=== PATIENT | female | born 1970 | race Hispanic/Latino ===

== ENCOUNTER 2021-03-15 18:33 | Emergency (ER) | payer OTHER ==
--- OUTSIDE RECORDS SUMMARY | 2021-03-15 18:36 | XMS REPORT | Continuity of Care Document ---
:1970 Author Organization [facility] t Address [address] [place] [address] Care Team Providers Name Role Phone Baldemar Antonio Attending Clinician Unavailable KNOW Admitting Clinician Unavailable Payers Payer Name Policy Type Policy Number Effective Date Expiration Date S ource Problems This patient has no known problems. Allergies, Adverse Reactions, Alerts Allergy Allergy Status Severity Reaction(s) Onset Inactive Treating Comm ents Source Name Type Date Date Clinician No Known DA Active U 2019-04 [facility] [place] No Known DA Active U 2019-04 [facility] [place] Medications This patient has no known medications. Procedures This patient has no known procedures. Encounters Start End Encounter Admission Attending Care Care Encounter Source Date/Time Date/Time Type Type Clinicians Facility Department ID 2020-02-20 Inpatient ZEE Muir DAYS [id number] [facility] 14:30:00 [facility] [id number] [facility] 2020-02-18 Inpatient ZEE Muir OUTD [id number] [facility] 14:30:00 [facility] 2020-02-19 2020-02-19 Outpatient ZEE Muir [id number] [facility] 04:26:00 04:26:00 [facility] 2020-02-15 2020-02-15 Outpatient ZEE Mcdermott [id number] [facility] 14:30:00 14:30:[id number] [facility] deanneantonio [facility] Results Test Description Test Time Test Comments Results Result Comments Source ENDOCERVIX,BIOPSY 2020-02-22 08:23:00 Test Item Value Reference Range Interpretation Aranza hussein ENDOCERVIX,BIOPSY RUN (test code = DATE: 02/25/20 [facility] PAGE 1 RUN TIME: ENDOBX) 5375 Specimen Inquiry RUN USER: INTERFACE RYAN NT: DANO DAVISON LOC: [place] U #: [id number] AGE/SX: 49/F ROOM: RE02/19/20REG DR: Compa Mcdermott MD : 70 BED : DIS: STATUS: CHARLOTTE DAMON TLOC: SPEC #: [id number] RECD: 02/19/20-1223 STATUS: BRADY NIELSEN #: [id number] SERJIO: 02/19/20 - SUBM DR: Compa Mcdermott MD ENTERED: 02/19/20-1225 SP TYPE: EN DOBX OTHR DR: ORDERED: LEVEL IV/3 CODES: C15802 - UTERINE CERVIX [id number] - ENDOCERVIX [id number] - ENDOMETRIUM, NO PROCEDURES: LEVEL IV (Incomplete) TISSUES: ENDOCERVIX - ENDOCERVICAL CURETTINGS ENDOMETRIUM, NOS - ENDOMETRIAL CURETTINGS UTERINE CERVIX, NOS - CERVICAL CONE CLINICAL HISTORY 49 year old, cervical squamous intraepithelial neoplasia grade; abnormalty bleeding (kr) FINAL DIAGNOSIS Specimen #1 designated "predilation and curettage, endocervical curettings": - benign fragments of s quamous epithelium with hyperkeratosis - benign endocervical mucosa Specimen #2 end ometrium, curettage: - minute fragment of stromal tissue insufficient for diagnosis Specimen #3 cervix, LEEP: - chronic inflammation and reactive epithelial changes at transformation zone - no dysplasia identified CPT code(s): 48798 x2, 54868, 8 8342-26 cds/kr cds/wpd GROSS DESCRIPTION ANATOMIC SOURCE OF TISSUE (per Requis ition): 1. Predilation and curettage, endocervical curetting 2. Endometrial curettings 3 . LEEP (stitch at 12:00) Each specimen is labeled with the patient's name and medical r ecord number. CONTINUED ON NEXT PAGE RUN DATE: 02/25/20 [facility] PAGE 2 RUN TIME: 1834 Specimen Inquiry RUN USER: INTERFACE SPEC #: [id number] PATIENT: DANO DAVISON #[id number] (Continued) ------ GROSS DESCRIPT ION (Continued) Specimen #1 is designated "predilation and curettage, endocervical curettings" and consists of a 0.6 cm aggregate of uriostegui-pink soft tissue admixed with mucoid tissue. The specimen is placed in a filter bag and entirely submitted in A1. Specimen #2 is designated "endometrial curettings" and consists of a 0.1 x 0.1 x 0.1 cm ag gregate of uriostegui-pink soft tissues. The tissues are placed in a filter bag and submitted in toto in B1. The tissues may not survive processing. Specimen #3 is designated "LEEP, stitch at 12:00" and consists of a 1.5 x 1 x 0.4 cm annular portion of mucosa. The specimen has a stitch designating 12:00. The mucosa is uriostegui-pink to purple and dull. The endocervical michelle in is inked green. The ectocervical margin is inked black. The specimen is radially section ed and entirely submitted as follows: C1 - 12:00 to 3:00, C2 - 3:00 to 6:00, C3 - 6:00 to 9 :00, C4 - 9:00 to 12:00. monique/john 02/19/20 MICROSCOPIC DESCRIPTION Sections of t he cervical LEEP specimen show moderate to marked chronic inflammation at the transf ormation zone with reactive epithelial changes. There is no evidence of high grade dysplasia. autumn/kr The following technical components were performed at [facility], [address] [place] [address], [address], [place] [address]. The interpretation i s provided by [facility], [address], [place] [address]. Controls receiv ed from [employer] stained appropriately. INTERPRETATION: P16 (C2 and C4) - negative cds/wpd -- Signed Howard Scalesglory Lorenz 02/22/20 0823 END OF REP ORT COVID 19 Asymptomatic IH [id number] 18:30:00 Test Item Value Reference Range Interpretation Comments COVID 19 NEGATIVE NEGATIVE This test has b een Asymptomatic IH AG authorize d only for the (test code = detection ofpro teins from COVNONPUIAG) SARS-CoV-2, not for any other viruses orpathogens. N egative results should be treated as presumptive andconfirmed wi th a molecular assay , if necessary for patientmanageme nt. Negative result s do not rule out COVID- 19 andshould not b e used as the sole basis for treatment orpat ient management deci sions, including infec tion controldecision s. Negative result s should be considered i n thecontext of a patient's recent exposure s, history and thepresence of clinical signs and symptoms consis tent withCOVID-19. T his test has not been FD A cleared or approved; th e test hasbeen authori zed by FDA under an Emerge ncy Use Authorization(E UA) for use by alisaato duane certified under the CLIA thatmeet the re quirements to perform mode rate, high or waivedcomple xity tests. This ritu t is authorized for use at thePoint of Car e (POC), i.e., in patien t care settingsoperati ng under a CLIA Certificat e of Waiver, Certifi melvin ofCompliance, o r Certificate of Accreditation. This test is only authori zed for the duration of thedeclaration that circumstances e xist justifying theauthorizatio n of emergency use o f in vitro diagnostic test sfor detection and/o r diagnosis of CO VID-19 under Wgxxfal43 4(b)(1) of the Act, 21 U.S .C. 360bbb-3(b)(1), unless theauthorizatio n is terminated or r evoked sooner. UR HCG [id number] 17:32:00 Test Item Value Reference Range Interpretation Comments UR HCG QUAL (test NEGATIVE 1. Very di lute urine code = HCGQLU) specimens, as indicated by a lowspecific g ravity, may not contain rep resentative levels ofhCG. 2 . False negative result s may occur when the levels of hCGare below the sensi tivity level of the test. If is still suspec eliza, a first morningurine sp ecimen should be colle cted 48 hours later and tested. CBC W/AUTO [id number] 17:30:00 Test Item Value Reference Range Interpretation Comments WHITE BLOOD CELL (test code = WBC) 5.4 K/mm3 6.6-12.1 L RED BLOOD CELL (test code = RBC) 5.45 M/mm3 3.45-5.01 H HEMOGLOBIN (test code = HGB) 16.2 g/dL 10.7-13.9 H HEMATOCRIT (test code = HCT) 50.1 % 32.1-42.1 H MEAN CELL VOLUME (test code = MCV) 92 fL 84.1-94.8 N MEAN CELL HGB (test code = MCH) 29.7 pg 27-35 N MEAN CELL HGB CONCETRATION (test 32.3 gm/dL 32.2-34.1 N code = MCHC) RED CELL DISTRIBUTION WIDTH (test 13.4 % 12.4-16.5 N code = RDW) PLATELET COUNT (test code = PLT) 281 K/mm3 133-385 N MEAN PLATELET VOLUME (test code = 10.1 fl 9.1-12.7 N MPV) NEUTROPHIL % (test code = NT%) 52.3 % 56.5-79.4 L LYMPHOCYTE % (test code = LY%) 36.5 % 14.3-34.3 H MONOCYTE % (test code = MO%) 7.7 % 5.1-10.4 N EOSINOPHIL % (test code = EO%) 2.6 % 0.1-3.0 N BASOPHIL % (test code = BA%) 0.7 % 0.1-1.0 N NEUTROPHIL # (test code = NT#) 2.8 K/mm3 LYMPHOCYTE # (test code = LY#) 2.0 K/mm3 MONOCYTE # (test code = MO#) 0.4 K/mm3 EOSINOPHIL # (test code = EO#) 0.14 K/mm3 BASOPHIL # (test code = BA#) 0.0 K/mm3 RBC MORPHOLOGY REQUIRED (test code NORMAL NORMAL = RBCM) PLATELET MORPHOLOGY REQUIRED (test NORMAL NORMAL code = PLTMR)
[2021-03-15] MEDS ORDERED: DIPHENHYDRAMINE 50 MG/ML VIAL ONE (20:27)
[2021-03-15] MEDS ORDERED: METOCLOPRAMIDE 10 MG/2mL INJ ONE (20:27)
[2021-03-15 21:08] LABS: Basophils % 0.9 % (0-1.3); Hematocrit 42.5 % (36.0-45.0); Lymphocytes % 33.7 % (15.3-44.8); MPV 7.1 fL (7.6-11.3); RBC Red Blood Cell Count 4.86 M/uL (3.86-4.86)
[2021-03-15 21:12] LABS: Protime INR 0.91
--- NOTE | 2021-03-15 21:22 | RAD REPORT ---
EXAM DESCRIPTION: CT - Head Brain Wo Cont - 03/15/2021 8:41 pm CLINICAL HISTORY: HEADACHE COMPARISON: No comparisons TECHNIQUE: Axial 5 mm thick images of the head were obtained without IV contrast. All CT scans are performed using dose optimization technique as appropriate and may include automated exposure control or mA/KV adjustment according to patient size. FINDINGS: No intracranial hemorrhage, mass, edema or shift of mid-line structures. No acute infarcti on changes seen. No abnormal extra-axial fluid collections. Ventricles are normal. Mastoid air cells are clear. There is partial opacification of the right maxillary sinus from large p olyp or retention cyst. Air-fluid level is present in the left maxillary sinus. Bilateral antral wind ow surgical procedures have been performed and there is partial resection of the nasal septum. No acute bony findings. IMPRESSION: No intracranial abnormality seen. Air-fluid level present in the left maxillary sinus. Bilateral maxillary sinus and nasal passage surg ical changes are noted.
--- NOTE | 2021-03-15 21:23 | RAD REPORT ---
EXAM DESCRIPTION: RAD - Chest Single View - 03/15/2021 9:07 pm CLINICAL HISTORY: COUGH COMPARISON: March 2013 TECHNIQUE: AP portable chest image was obtained 03/15/2021 9:07 pm . FINDINGS: No acute lung parenchymal process seen. Chronic interstitial pattern is similar to the far remote comparison. Bilateral apical pleural thickening changes are also stable. Heart and vasculatur e are normal. No measurable pleural effusion and no pneumothorax. No acute bony abnormality seen. No acute aortic findings suspected. IMPRESSION: No acute cardiopulmonary process.
[2021-03-15 21:27] LABS: ALT/SGPT 30 U/L (12-78); AST/SGOT 29 U/L (15-37); Albumin 3.5 g/dL (3.4-5.0); Alkaline Phosphatase 125 U/L (45-117); BUN Blood Urea Nitrogen 4 mg/dL (7-18); Bicarbonate 28 mmol/L (21-32); Bilirubin Direct 0.2 mg/dL (0-0.2); Bilirubin Total 0.6 mg/dL (0.2-1.0); Glucose Level 91 mg/dL (74-106); Magnesium 2.5 mg/dL (1.8-2.4); NT PRO-BNP 97 pg/mL (<125); Potassium 3.6 mmol/L (3.5-5.1); Sodium Level 140 mmol/L (136-145); Troponin (Emerg Dept Use Only) < 0.02 ng/mL (0.0-0.045)
[2021-03-15 21:58] LABS: SARS-COV-2 RT PCR NEGATIVE (NEGATIVE)
--- NOTE | 2021-03-15 22:30 | EDPHYS ---
Physician Documentation [facility] Name: Nona Cruz Age: 50 yrs Sex: Female : 1970 Arrival Date: 03/15/2021 Time: 18:37 Bed 17 Private MD: ED Physician Hamilton Mosquera HPI: 03/15 20:10 This 50 yrs old Female presents to ER via Ambulatory with complaints of mh7 Headache, Vomiting, Fever. 20:10 The patient complains of pain to the forehead. mh7 20:10 The patient describes the headache as intermittent, throbbing, waxing and waning. mh7 Onset: The symptoms/episode began/occurred 2 day(s) ago. Associated signs and symptoms: Pertinent positives: fever, nausea, Photophobia vomiting, Pertinent negatives: altered mental status, dizziness, malaise, neck stiffness, paresthesias, rash, sinus congestion, sinus tenderness, vision changes, vision loss, weakness, vertigo. Severity of symptoms: At its worst the pain was moderate, yesterday, in the emergency department the pain has improved, moderately. Headache History: The patient has had previous headaches and this one is similar to previous episodes. The symptoms are alleviated by Darkened room, quiet, Has not taken any pain medication the symptoms are aggravated by lights, noise. Patient reports receiving infusion of zoledronic acid 6 days ago for osteoporosis and started having symptoms 2 days ago. She reports fever with a temperature recording of 99 degrees at home. She had vomiting that resolved yesterday. She denies any neck pain, chest pain, abdominal pain, diarrhea, dizziness, numbness/tingling, or weakness. She has had some cough and sore throat. She has not attempted taking any medication for symptoms. According to information provided with infusion the symptoms are characteristic side effects of the medication.. 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 - Social history:: Smoking status: Patient reports the use of cigarette tobacco products, smokes one-half pack cigarettes per day. ROS: 20:10 Eyes: Negative for injury, pain, redness, and discharge, Neck: Negative for injury, mh7 pain, and swelling, Cardiovascular: Negative for chest pain, palpitations, and edema. 20:10 Back: Negative for injury and pain, : Negative for injury, bleeding, discharge, and swelling, MS/Extremity: Negative for injury and deformity, Skin: Negative for injury, rash, and discoloration, Psych: Negative for depression, anxiety, suicide ideation, homicidal ideation, and hallucinations, Allergy/Immunology: Negative for hives, rash, and allergies, Endocrine: Negative for neck swelling, polydipsia, polyuria, polyphagia, and marked weight changes, Hematologic/Lymphatic: Negative for swollen nodes, abnormal bleeding, and unusual bruising. 20:10 Respiratory: Negative for dyspnea on exertion, hemoptysis, orthopnea, pleurisy, shortness of breath, sputum production, wheezing. 20:10 Abdomen/GI: Negative for abdominal pain, diarrhea, constipation, abdominal cramps, abdominal distension, anorexia, dysphagia, hematemesis, black/tarry stool, rectal pain, rectal bleeding, bowel incontinence, flatulence. Exam: 20:10 Constitutional: This is a well developed, well nourished patient who is awake, alert, mh7 and in no acute distress. 20:10 Head/Face: Normocephalic, atraumatic. Eyes: Pupils equal round and reactive to light, extra-ocular motions intact. Lids and lashes normal. Conjunctiva and sclera are non-icteric and not injected. Cornea within normal limits. Periorbital areas with no swelling, redness, or edema. ENT: Nares patent. No nasal discharge, no septal abnormalities noted. Tympanic membranes are normal and external auditory canals are clear. Oropharynx with no redness, swelling, or masses, exudates, or evidence of obstruction, uvula midline. Mucous membranes moist. Neck: Trachea midline, no thyromegaly or masses palpated, and no cervical lymphadenopathy. Supple, full range of motion without nuchal rigidity, or vertebral point tenderness. No Meningismus. Chest/axilla: Normal chest wall appearance and motion. Nontender with no deformity. No lesions are appreciated. Cardiovascular: Regular rate and rhythm with a normal S1 and S2. No gallops, murmurs, or rubs. Normal PMI, no JVD. No pulse deficits. Respiratory: Lungs have equal breath sounds bilaterally, clear to auscultation and percussion. No rales, rhonchi or wheezes noted. No increased work of breathing, no retractions or nasal flaring. Abdomen/GI: Soft, non-tender, with normal bowel sounds. No distension or tympany. No guarding or rebound. No evidence of tenderness throughout. Back: No spinal tenderness. No costovertebral tenderness. Full range of motion. Skin: Warm, dry with normal turgor. Normal color with no rashes, no lesions, and no evidence of cellulitis. MS/ Extremity: Pulses equal, no cyanosis. Neurovascular intact. Full, normal range of motion. Neuro: Awake and alert, GCS 15, oriented to person, place, time, and situation. Cranial nerves II-XII grossly intact. Motor strength 5/5 in all extremities. Sensory grossly intact. Cerebellar exam normal. Normal gait. Psych: Awake, alert, with orientation to person, place and time. Behavior, mood, and affect are within normal limits. Vital Signs: 19:07 BP 134 / 83; Pulse 83; Resp 16; Temp 99.1(O); Pulse Ox 100% ; Weight 49.9 kg; Height 5 vg1 ft. 0 in. (152.40 cm); Pain 6/10; 19:07 Body Mass Index 21.48 (49.90 kg, 152.40 cm) vg1 Anjel Coma Score: 22:27 Eye Response: spontaneous(4). Verbal Response: oriented(5). Motor Response: obeys mh7 commands(6). Total: 15. MDM: 22:27 Differential diagnosis: cluster headache, hypertensive headache, intracerebral mh7 hemorrhage, migraine, tension headache, Adverse medication reaction. Data reviewed: vital signs, nurses notes, lab test result(s), cardiac enzymes, CBC, electrolytes, EKG, radiologic studies, CT scan, plain films. Data interpreted: Pulse oximetry: on room air is 100 %. Interpretation: normal. Counseling: I had a detailed discussion with the patient and/or guardian regarding: the historical points, exam findings, and any diagnostic results supporting the discharge/admit diagnosis, lab results, radiology results, the need for outpatient follow up, to return to the emergency department if symptoms worsen or persist or if there are any questions or concerns that arise at home. Response to treatment: the patient's symptoms have resolved after treatment, the patient's blood pressure is in an acceptable range, mental status has returned to baseline, the patient no longer shows bradycardia, the patient is not short of breath, the patient is not tachycardic, the patient's pain is gone, the patient's temperature has normalized, patient is well hydrated. 22:29 Patient medically screened. [facility] 03/15 20:22 Order name: Basic Metabolic Panel [facility] 03/15 20:22 Order name: CBC with Diff [facility] 03/15 20:22 Order name: LFT's; Complete Time: 22:01 [facility] 03/15 20:22 Order name: Magnesium; Complete Time: 22:01 [facility] 03/15 20:22 Order name: NT PRO-BNP; Complete Time: 22:01 [facility] 03/15 20:22 Order name: PT-INR; Complete Time: 21:27 [facility] 03/15 20:22 Order name: Troponin (emerg Dept Use Only); Complete Time: 22:01 [facility] 03/15 20:22 Order name: XRAY Chest (1 view); Complete Time: 21:27 [facility] 03/15 20:22 Order name: COVID-19/FLU A+B (Document "Date of Onset" if Symptomatic); Complete Time: [facility] 22:03/15 20:22 Order name: Rapid Strep; Complete Time: 22:01 [facility] 03/15 20:22 Order name: CT Head Brain wo Cont; Complete Time: 21:27 [facility] 03/15 20:22 Order name: Basic Metabolic Panel; Complete Time: 22:01 [facility] 03/15 20:22 Order name: CBC with Automated Diff; Complete Time: 21:27 [facility] 03/15 21:55 Order name: Throat Culture [facility] 03/15 20:22 Order name: EKG; Complete Time: 20:23 [facility] 03/15 20:22 Order name: Cardiac monitoring [facility] 03/15 20:22 Order name: EKG - Nurse/Tech [facility] 03/15 20:22 Order name: IV Saline Lock; Complete Time: 20:35 [facility] 03/15 20:22 Order name: Labs collected and sent; Complete Time: 20:35 [facility] 03/15 20:22 Order name: O2 Per Protocol; Complete Time: 20:40 [facility] 03/15 20:22 Order name: O2 Sat Monitoring; Complete Time: 20:40 [facility] Administered Medications: 20:34 Drug: NS 0.9% 1000 ml Route: IV; Rate: 1000 ml; Site: left antecubital; mr2 20:34 Drug: Reglan (metoCLOPramide) 10 mg Route: IVP; Site: left antecubital; mr2 20:34 Drug: Benadryl (diphenhydrAMINE) 50 mg Route: IVP; Site: left antecubital; mr2 Disposition Summary: 03/15/21 22:29 Discharge Ordered Location: Home [facility] Problem: new [facility] Symptoms: have improved [facility] Condition: Stable [facility] Diagnosis - Headache [facility] Followup: [facility] - With: Private Physician - When: 1 - 2 days - Reason: If symptoms return, Worsening of condition, Recheck today's complaints, Continuance of care, Re-evaluation by your physician Followup: [facility] - With: Zachery Arechiga MD - When: 1 - 2 days - Reason: Worsening of condition, Recheck today's complaints Discharge Instructions: - Discharge Summary Sheet [facility] - General Headache Without Cause [facility] - Form - Excuse from Work, School, or Physical Activity [facility] - Form - Return To Work [facility] Forms: - Medication Reconciliation Form [facility] - Thank You Letter [facility] - Antibiotic Education [facility] - Prescription Opioid Use [facility] Prescriptions: - ondansetron 4 mg Oral tablet,disintegrating - take 1 tablet by ORAL route every 8 hours As needed; 10 tablet; Refills: 0, [facility] Product Selection Permitted - Diclofenac Sodium 75 mg Oral tablet,delayed release (DR/EC) - take 1 tablet by ORAL route 2 times per day As needed; 10 tablet; Refills: 0, [facility] Product Selection Permitted Signatures: Dispatcher [employer] Chelsie Durant RN RN vg1 Hamilton Mosquera MD MD 7 Damion Miller RN RN mr2
--- NOTE | 2021-03-15 22:30 | ER ---
Nurse's Notes [facility] Name: Nona Cruz Age: 50 yrs Sex: Female : 1970 Arrival Date: 03/15/2021 Time: 18:37 Bed 17 Private MD: Diagnosis: Headache Presentation: 03/15 19:07 Chief complaint: Patient states: headache, fever x2 days; states JUSTINA ear pain. States vg1 back and left hip pain; states on Tuesday03/09/21 had a infusion of Zoledronic Acid for osteoporosis. Coronavirus screen: Vaccine status: Patient reports being unvaccinated. Ebola Screen: Patient negative for fever greater than or equal to 101.5 degrees Fahrenheit, and additional compatible Ebola Virus Disease symptoms. Initial Sepsis Screen: Does the patient meet any 2 criteria? No. Patient's initial sepsis screen is negative. Does the patient have a suspected source of infection? No. Patient's initial sepsis screen is negative. Risk Assessment: Do you want to hurt yourself or someone else? Patient reports no desire to harm self or others. Onset of symptoms was March 13, 2021. 19:07 Method Of Arrival: Ambulatory vg1 19:07 Acuity: SUMEET 3 vg1 Triage Assessment: 19:09 Headache History: The patient has had previous headaches and this one is more severe vg1 than previous episodes. General: Appears in no apparent distress. uncomfortable, Behavior is calm, cooperative. Pain: Complains of pain in head, JUSTINA ears, and lower back Pain currently is 6 out of 10 on a pain scale. Pain began 2-3 days ago. Also complains of nausea. Neuro: Level of Consciousness is awake, alert, obeys commands, Oriented to person, place, time, situation, Reports headache photophobia. 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 - Social history:: Smoking status: Patient reports the use of cigarette tobacco products, smokes one-half pack cigarettes per day. Screenin:00 Abuse screen: Denies threats or abuse. Denies injuries from another. Nutritional mr2 screening: No deficits noted. Tuberculosis screening: No symptoms or risk factors identified. Fall Risk None identified. Vital Signs: 19:07 BP 134 / 83; Pulse 83; Resp 16; Temp 99.1(O); Pulse Ox 100% ; Weight 49.9 kg; Height 5 vg1 ft. 0 in. (152.40 cm); Pain 6/10; 19:07 Body Mass Index 21.48 (49.90 kg, 152.40 cm) vg1 Anjel Coma Score: 22:27 Eye Response: spontaneous(4). Verbal Response: oriented(5). Motor Response: obeys [facility] commands(6). Total: 15. ED Course: 18:37 Patient arrived in ED. as 19:09 Triage completed. vg1 19:09 Arm band placed on. vg1 19:53 Hamiltno Mosquera MD is Attending Physician. 7 20:02 Damion Miller, CURTIS is Primary Nurse. mr2 20:35 COVID-19/FLU A+B (Document "Date of Onset" if Symptomatic) Sent. mr2 20:35 Basic Metabolic Panel Sent. mr2 20:35 CBC with Diff Sent. mr2 20:35 LFT's Sent. mr2 20:35 Magnesium Sent. mr2 20:35 NT PRO-BNP Sent. mr2 20:35 PT-INR Sent. mr2 20:40 Basic Metabolic Panel Sent. mr2 20:40 CBC with Automated Diff Sent. mr2 20:40 Rapid Strep Sent. mr2 20:40 Troponin (emerg Dept Use Only) Sent. mr2 20:41 CT Head Brain wo Cont In Process Unspecified. EDMS 21:07 XRAY Chest (1 view) In Process Unspecified. EDMS 21:30 Patient has correct armband on for positive identification. Side rails up X2. Adult w/ mr2 patient. 22:00 No provider procedures requiring assistance completed. IV discontinued. mr2 22:29 Zachery Arechiga MD is Referral Physician. 7 Administered Medications: 20:34 Drug: NS 0.9% 1000 ml Route: IV; Rate: 1000 ml; Site: left antecubital; mr2 20:34 Drug: Reglan (metoCLOPramide) 10 mg Route: IVP; Site: left antecubital; mr2 20:34 Drug: Benadryl (diphenhydrAMINE) 50 mg Route: IVP; Site: left antecubital; mr2 Outcome: 22:29 Discharge ordered by . analilia 22:55 Discharged to home ambulatory. mr2 22:55 Condition: stable 22:55 Discharge instructions given to patient. 22:56 Patient left the ED. mr2 Signatures: Dispatcher [employer] Maria Esther Cobos Victoria RN RN vg1 Hamilton Mosquera MD MD 7 Damion Miller RN RN mr2
[2021-03-15 23:24] VITALS: BP 134/83; TEMP 99.1; O2SAT 100
== END 2021-03-15 22:56 | disposition home or self-care (01) ==
LOC: ER 18:33
DX: R51.9 Headache, unspecified (principal); J44.9 Chronic obstructive pulmonary disease, unspecified; F17.210 Nicotine dependence, cigarettes, uncomplicated
CPT/HCPCS: 93005 ×2; 87070; 85025; 80048; 36415; 83735; 85610; 80076; 87081; 84484; 83880; 0240U; 70450; 71045; 96375; 96374; 99283; J2765; J1200